=== PATIENT | male | born 1945 | race Caucasian/White ===

== ENCOUNTER → 2017-12-29 | Day surgery (SDC) | payer OTHER ==
[~2017-12-29] MED LIST: BUPIVACAINE/EPINEPHRINE 0.25% 50 ML VIAL ONE; KETOROLAC TROMETHAMINE 30 MG/ML (IVP) VIAL IV PUSH ONE; LACTATED RINGER'S 1000 ML INJ 1,000 ML ONE; MIDAZOLAM HCL 2 MG/2 ML VIAL ONE; ONDANSETRON HCL 4 MG/2 ML VIAL IV PUSH ONE; PROPOFOL 200 MG/20 ML AMP IV ONE; SODIUM CHLORIDE 0.9% INJ 100 ML IV ONE; ceFAZolin INJ 1,000 MG VIAL ONE
--- NOTE | 2017-12-29 12:37 | PD.PROCEDR ---
Procedure Note Procedure Operative report Preoperative diagnosis Symptomatic umbilical hernia Postoperative diagnosis Same Procedure Open repair umbilical hernia with mesh Surgeon Freddy Blackmon MD Health Sciences Program Coordinator Lani Wellington [employer]ISON OFFICER Anesthesia General This procedure was assisted by my nurse practitioner. The skill set of an PRISON OFFICER was medically necessary to provide improved safety and efficiency in the completion of this procedure. The medical technologist prn was at the back table providing appropriate instrumentation while the nurse practitioner directly assisted me through the entirety of the procedure. Indications for procedure this is a pleasant 72-year-old gentleman was developed an umbilical hernia which is become symptomatic. He is desirous of operative repair. Description of procedure in detail The patient was identified as Breezy Harman taken to the operating room placed in supine position. Sequential compression devices were placed on bilateral lower extremities. Following induction of adequate general anesthesia the patient's abdomen was prepped and draped in usual sterile fashion with Betadine. A timeout procedure was performed. Following completion timeout procedure everyone's satisfaction within the room proposed incision was made in the infraumbilical position with a marking pen. Local anesthetic was placed beneath the proposed incision site and around the umbilicus. The incision was carried out the scalpel and hemostasis control electrocautery. Using scissor and blunt dissection herniated preperitoneal fatty tissue was reduced from the overlying umbilical skin and the fascia circumferentially cleared around the umbilical hernia defect. The umbilical defect was then approximated with several interrupted inverted 0 Prolene sutures. The approximate 5 x 6 cm piece of Prolite mesh was cut from a 3 x 6" piece placed in the onlay position and held in position with interrupted 0 Ethibond sutures. Sutures were placed at the 3 and 9 o'clock position then 12 and 6 o'clock position. Sutures then placed in each corner of the mesh. This created a taut mesh. Irrigation ensued there is no evidence of bleeding. The umbilicus was reformed and is normal inward projection with interrupted 2-0 Vicryl sutures. 2-0 Vicryl and 4- 0 Monocryl were used to complete closure of the skin. Dressings were applied with Mastisol half-inch brown Steri-Strips gauze and Tegaderm. Abdominal binder was placed. The patient tolerated procedure without apparent complication. Sponge needle and instrument counts were correct at the end of the case. Freddy Blackmon MD Dec 29, 2017 12:37
== END | disposition home or self-care (01) ==
LOC: ESDC 09:52
PROVIDERS: ATTEND Surgery Trauma Surgery
DX: K42.9 Umbilical hernia without obstruction or gangrene (principal)
CPT/HCPCS: 00750; 49585; C1781; J0690; J1885; J2250; J2405; J3010; J7120